=== PATIENT | male | born 1990 | race Two or more races ===

== ENCOUNTER 2017-03-23 20:33 | Emergency (ER) | payer OTHER ==
[~2017-03-23] VITALS: Ht 170.2 cm; Wt 72.6 kg
[2017-03-23] MEDS ORDERED: PROZAC20 MG (20:47)
== END 2017-03-23 21:22 | disposition home or self-care (01) ==
LOC: ER 20:33
DX: K08.89 Other specified disorders of teeth and supporting structures (principal); T81.4XXS Infection following a procedure, sequela; Z98.811 Dental restoration status